=== PATIENT | female | born 1965 | race Two or more races ===

== ENCOUNTER 2023-04-07 20:01 | Emergency (ER) | payer BC, OTHER ==
[~2023-04-07] VITALS: Ht 165.1 cm; Wt 62.8 kg
[2023-04-07] MEDS ORDERED: ACET500T58 PO (23:24)
[2023-04-07] MEDS ORDERED: DOXY-448 PO (23:24)
[2023-04-08 00:05] VITALS: BP 118/78; PULSE 87; RESP 18; TEMP 98; O2SAT 99
== END 2023-04-08 00:05 | disposition home or self-care (01) ==
LOC: ER 20:01
DX: S61.412A Laceration without foreign body of left hand, initial encounter (principal); I48.91 Unspecified atrial fibrillation; F41.9 Anxiety disorder, unspecified; J45.909 Unspecified asthma, uncomplicated; Z91.040 Latex allergy status; Z88.0 Allergy status to penicillin; Z90.49 Acquired absence of other specified parts of digestive tract; F17.210 Nicotine dependence, cigarettes, uncomplicated; W54.0XXA Bitten by dog, initial encounter; Y93.89 Activity, other specified; Y92.89 Other specified places as the place of occurrence of the external cause; Y99.8 Other external cause status
CPT/HCPCS: 12001